=== PATIENT | male | born 1965 | race Two or more races ===

== ENCOUNTER 2023-10-07 15:44 | Inpatient (IN) | payer OTHER ==
[~2023-10-07] VITALS: Ht 175.3 cm; Wt 79.7 kg
[2023-10-07 15:56] VITALS: PULSE 79; RESP 17; O2SAT 98
[2023-10-07] MEDS ORDERED: NITROGLYCERIN 2% OINT 1GM PKG TD ONE (16:00)
[2023-10-07] MEDS ORDERED: ASPirin-EC 325mg tab PO ONE (16:00)
[2023-10-07] MEDS ORDERED: FUROSEMIDE 40 MG/4 ML VIAL IV ONE (16:00)
[2023-10-07] MEDS ORDERED: NITROGLYCERIN 50MG/250ML 250 ML IV ONE (16:00)
[2023-10-07 16:44] LABS: Basophils # (auto) 0 10 ^3/uL (0-0.2); Basophils % (auto) 0.4 % (0.0-2.0); Eosinophils # (auto) 0.1 10 ^3/uL (0-0.8); Eosinophils % (auto) 1.1 % (0.0-7.0); Hematocrit 38.5 % (41.0-53.0); Hemoglobin 12.6 g/dL (13.5-17.5); Lymphocytes # (auto) 1.2 10 ^3/uL (0.4-5.4); Lymphocytes % (auto) 12.8 % (10.0-50.0); Mean Corpuscular Hemoglobin 30.8 pg (28.0-32.0); Mean Corpuscular Hgb Conc. 32.8 g/dL (32.0-36.0); Mean Corpuscular Volume 93.9 fL (80.0-100.0); Monocytes # (auto) 0.7 10 ^3/uL (0-1.3); Monocytes % (auto) 7.8 % (0.0-12.0); Neutrophils # (auto) 7.3 10 ^3/uL (1.6-8.6); Neutrophils % (auto) 77.9 % (37.0-80.0); Red Cell Distribution Width 17.2 % (11.8-14.3); White Blood Cell 9.4 10^3/uL (4.4-10.8)
[2023-10-07 17:04] LABS: Chloride 92 mmol/L (98-107); Potassium 4.3 mmol/L (3.5-5.1); Sodium 133 mmol/L (136-145)
[2023-10-07 17:05] LABS: Anion Gap 7 (5-15); Calcium 8.6 mg/dL (8.7-10.4); Carbon Dioxide 34 mmol/L (20-30)
[2023-10-07 17:10] LABS: Blood Urea Nitrogen 31 mg/dL (9-23); Glucose 362 mg/dL (74-106); INR 1.13 (0.9-1.15); Prothrombin Time 11.8 sec (9.3-11.8)
[2023-10-07 19:15] VITALS: PULSE 76; RESP 15; O2SAT 97
[2023-10-07] MEDS ORDERED: ACETAMINOPHEN 500 MG TAB PO ONE (20:00)
[2023-10-07] MEDS ORDERED: MORPHINE SULFATE INJ 2 MG/ml SYRG IV PRN (21:00)
[2023-10-07] MEDS ORDERED: DEXTROSE (50%) 50ML SYRG IV PRN (21:00)
[2023-10-07] MEDS ORDERED: NITROGLYCERIN 0.4 MG SL TAB SL PRN (21:00)
[2023-10-07] MEDS ORDERED: SODIUM CHL 0.9% 1000 ML BAG XX ONE (21:00)
[2023-10-07 21:23] LABS: COVID19 ANTIGEN SOFIA FIA NEGATIVE (NEGATIVE); Rapid Influenza A Negative (Negative); Rapid Influenza B Negative (Negative)
[2023-10-07] MEDS ORDERED: SACUBITRIL-VALSARTAN 24mg/26mg TAB PO SCH (22:00)
[2023-10-07] MEDS: ACCU-CHEK COMFORT CURVE STRIP VI SCH (22:09)
[2023-10-07] MEDS: InsuLIN REG 1unit/0.01ml Soln (100units/ml) SC SCH (22:09)
[2023-10-07] MEDS ORDERED: TEMAZEPAM 15 MG CAP PO ONE (22:30)
[2023-10-08] VITALS (8 sets, daily range): BP systolic 106–210; BP diastolic 55–118; PULSE 69–87; RESP 16–20; TEMP 97.9; O2SAT 91–98
[2023-10-08] MEDS ORDERED: NITROGLYCERIN 50MG/250ML 250 ML IV ONE ×2 (01:47→06:29)
[2023-10-08] MEDS: FUROSEMIDE 40 MG TAB PO SCH ×2 (06:05→18:00)
[2023-10-08] MEDS ORDERED: NIFEdipine ER 30 MG TAB PO PRN ×2 (06:15→06:30)
[2023-10-08] MEDS: InsuLIN REG 1unit/0.01ml Soln (100units/ml) SC SCH ×4 (06:35→22:01)
[2023-10-08] MEDS: ACCU-CHEK COMFORT CURVE STRIP VI SCH ×4 (06:35→22:00)
[2023-10-08 06:46] LABS: % Iron Saturation 15.7 % (20-55)
[2023-10-08 06:48] LABS: Basophils # (auto) 0.1 10 ^3/uL (0-0.2); Basophils % (auto) 0.7 % (0.0-2.0); Eosinophils # (auto) 0.2 10 ^3/uL (0-0.8); Eosinophils % (auto) 1.8 % (0.0-7.0); Hematocrit 34.8 % (41.0-53.0); Hemoglobin 11.5 g/dL (13.5-17.5); Lymphocytes # (auto) 1.5 10 ^3/uL (0.4-5.4); Lymphocytes % (auto) 15.6 % (10.0-50.0); Mean Corpuscular Hemoglobin 31.2 pg (28.0-32.0); Mean Corpuscular Hgb Conc. 33.1 g/dL (32.0-36.0); Mean Corpuscular Volume 94.2 fL (80.0-100.0); Monocytes # (auto) 0.8 10 ^3/uL (0-1.3); Monocytes % (auto) 8.4 % (0.0-12.0); Neutrophils % (auto) 73.5 % (37.0-80.0); Red Blood Cells 3.69 10^6/uL (4.5-5.90); Red Cell Distribution Width 16.9 % (11.8-14.3); White Blood Cell 9.5 10^3/uL (4.4-10.8)
[2023-10-08 06:49] LABS: Alanine Aminotransferase 16 U/L (7-40); Albumin 3.7 g/dL (3.2-4.8); Alkaline Phosphatase 169 U/L (46-116); Anion Gap 7 (5-15); Aspartate Aminotransferase 17 U/L (13-40); BUN/Creatinine Ratio 5.1 (10.0-20.0); Bilirubin, Total 0.9 mg/dL (0.2-1.0); Blood Urea Nitrogen 34 mg/dL (9-23); Carbon Dioxide 34 mmol/L (20-30); Chloride 93 mmol/L (98-107); Potassium 3.4 mmol/L (3.5-5.1); Sodium 134 mmol/L (136-145); Total Protein 7.3 g/dL (5.7-8.2)
[2023-10-08 06:51] LABS: Glucose 132 mg/dL (74-106)
[2023-10-08] MEDS: NITROGLYCERIN 50MG/250ML 250 ML IV SCH (06:53)
[2023-10-08] MEDS ORDERED: LABETALOL HCL 5 MG/ML 4ML SYRINGE IV ONE (08:30)
[2023-10-08] MEDS ORDERED: LISINOPRIL 10 MG TAB PO SCH (10:00)
[2023-10-08] MEDS: METOPROLOL TARTRATE 50 MG TAB PO SCH (10:27)
[2023-10-08] MEDS ORDERED: guaiFENesin-DM 100/10mg/5ml SYR PO PRN (10:30)
[2023-10-08] MEDS ORDERED: cefTRIAXone 1GM/50ML D5W 50 ML IV ONE (10:30)
[2023-10-08] MEDS ORDERED: methylPREDNISolone SOD SUCC 40 MG/ML VL IV ONE (10:30)
[2023-10-08] MEDS ORDERED: guaiFENesin-DM 100/10mg/5ml SYR PO ONE (10:30)
[2023-10-08] MEDS ORDERED: AZITHROMYCIN 500MG/ 250ML 250 ML IV ONE (10:30)
[2023-10-08] MEDS ORDERED: ASPirin 81 mg TAB PO ONE (10:45)
[2023-10-08] MEDS ORDERED: ATORVASTATIN 20 MG TAB PO ONE (10:45)
[2023-10-08] MEDS: ALBUTEROL SULF 2.5 MG/0.5ML(0.5%) NEB SOLN NEB SCH ×2 (12:56→18:29)
[2023-10-08] MEDS: IPRATROPIUM BROM 0.5 MG/2.5ML INH SOL NEB SCH ×2 (12:57→18:29)
[2023-10-08] MEDS ORDERED: NIFEdipine ER 30 MG TAB PO ONE ×2 (13:15→14:15)
[2023-10-08] MEDS ORDERED: LEVOTHYROXINE SODIUM 100 MCG TAB PO ONE (18:15)
[2023-10-08] MEDS ORDERED: methylPREDNISolone SOD SUCC 40 MG/ML VL IV SCH (22:00)
[2023-10-08] MEDS: ATORVASTATIN 20 MG TAB PO SCH (22:00)
[2023-10-08] MEDS: SACUBITRIL-VALSARTAN 24mg/26mg TAB PO SCH (22:00)
[2023-10-09] VITALS (14 sets, daily range): BP systolic 112–135; BP diastolic 48–74; PULSE 60–97; RESP 14–20; TEMP 97.4–98.2; O2SAT 92–100
[2023-10-09] MEDS: NITROGLYCERIN 50MG/250ML 250 ML IV SCH (05:58)
[2023-10-09] MEDS: FUROSEMIDE 40 MG TAB PO SCH ×2 (06:00→17:16)
[2023-10-09] MEDS: ALBUTEROL SULF 2.5 MG/0.5ML(0.5%) NEB SOLN NEB SCH ×4 (06:19→18:17)
[2023-10-09] MEDS: IPRATROPIUM BROM 0.5 MG/2.5ML INH SOL NEB SCH ×3 (06:19→18:17)
[2023-10-09 06:27] LABS: Basophils # (auto) 0.1 10 ^3/uL (0-0.2); Basophils % (auto) 0.5 % (0.0-2.0); Eosinophils # (auto) 0.1 10 ^3/uL (0-0.8); Eosinophils % (auto) 0.7 % (0.0-7.0); Hematocrit 35.8 % (41.0-53.0); Hemoglobin 11.8 g/dL (13.5-17.5); Lymphocytes # (auto) 1.9 10 ^3/uL (0.4-5.4); Lymphocytes % (auto) 12.5 % (10.0-50.0); Mean Corpuscular Hemoglobin 30.9 pg (28.0-32.0); Mean Corpuscular Volume 93.8 fL (80.0-100.0); Monocytes # (auto) 1.1 10 ^3/uL (0-1.3); Monocytes % (auto) 7.3 % (0.0-12.0); Neutrophils # (auto) 11.8 10 ^3/uL (1.6-8.6); Nucleated Red Blood Cells % 0.1 %; Red Blood Cells 3.82 10^6/uL (4.5-5.90)
[2023-10-09] MEDS: LEVOTHYROXINE SODIUM 100 MCG TAB PO SCH (06:31)
[2023-10-09] MEDS: InsuLIN REG 1unit/0.01ml Soln (100units/ml) SC SCH ×6 (06:31→22:00)
[2023-10-09] MEDS: ACCU-CHEK COMFORT CURVE STRIP VI SCH ×7 (06:31→22:00)
[2023-10-09 06:41] LABS: Chloride 92 mmol/L (98-107); Potassium 3.4 mmol/L (3.5-5.1); Sodium 133 mmol/L (136-145)
[2023-10-09 06:42] LABS: Anion Gap 11 (5-15); Carbon Dioxide 30 mmol/L (20-30)
[2023-10-09 06:48] LABS: BUN/Creatinine Ratio 5.1 (10.0-20.0); Blood Urea Nitrogen 40 mg/dL (9-23); Glucose 61 mg/dL (74-106)
[2023-10-09] MEDS ORDERED: SODIUM CHL 0.9% 1000 ML BAG XX ONE (07:00)
[2023-10-09 08:55] LABS: Triglycerides 78 mg/dL (< 150)
[2023-10-09 08:57] LABS: Cholesterol 83 mg/dL (< 200); HDL Cholesterol 26 mg/dL (40-59)
[2023-10-09 09:11] LABS: LDL Cholesterol 34 mg/dL (< 100)
[2023-10-09] MEDS: cefTRIAXone 1GM/50ML D5W 50 ML IV SCH (09:25)
[2023-10-09] MEDS: ASPirin 81 mg TAB PO SCH (09:25)
[2023-10-09] MEDS ORDERED: AZITHROMYCIN 500MG/ 250ML 250 ML IV SCH (10:00)
[2023-10-09] MEDS: SACUBITRIL-VALSARTAN 24mg/26mg TAB PO SCH ×2 (10:00→21:26)
[2023-10-09] MEDS ORDERED: NIFEdipine ER 30 MG TAB PO SCH (10:00)
[2023-10-09] MEDS: NIFEdipine ER 30 MG TAB PO SCH (10:00)
[2023-10-09] MEDS: METOPROLOL TARTRATE 50 MG TAB PO SCH (10:00)
[2023-10-09] MEDS ORDERED: DEXTROSE (50%) 50ML SYRG IV PRN (11:30)
[2023-10-09] MEDS ORDERED: ALBUMIN 25% 100 ML IV ONE ×2 (19:00)
[2023-10-09] MEDS ORDERED: HYDR1CAP27 PO (19:51)
[2023-10-09] MEDS ORDERED: BENZ100C97 PO (19:51)
[2023-10-09] MEDS: ATORVASTATIN 20 MG TAB PO SCH (21:26)
[2023-10-10] VITALS (15 sets, daily range): BP systolic 143–169; BP diastolic 48–69; PULSE 64–71; RESP 14–20; TEMP 98–98.2; O2SAT 94–100
[2023-10-10] MEDS: ALBUTEROL SULF 2.5 MG/0.5ML(0.5%) NEB SOLN NEB SCH ×4 (01:13→18:04)
[2023-10-10 05:54] LABS: Chloride 95 mmol/L (98-107); Potassium 4.1 mmol/L (3.5-5.1); Sodium 135 mmol/L (136-145)
[2023-10-10 05:55] LABS: Anion Gap 9 (5-15); Carbon Dioxide 31 mmol/L (20-30)
[2023-10-10 05:56] LABS: Calcium 8.5 mg/dL (8.5-10.1)
[2023-10-10 06:01] LABS: BUN/Creatinine Ratio 5.3 (10.0-20.0); Basophils # (auto) 0.1 10 ^3/uL (0-0.2); Basophils % (auto) 0.5 % (0.0-2.0); Blood Urea Nitrogen 34 mg/dL (9-23); Eosinophils # (auto) 0.2 10 ^3/uL (0-0.8); Eosinophils % (auto) 2.4 % (0.0-7.0); Hematocrit 35.6 % (41.0-53.0); Hemoglobin 11.7 g/dL (13.5-17.5); Lymphocytes % (auto) 10.6 % (10.0-50.0); Mean Corpuscular Hemoglobin 30.9 pg (28.0-32.0); Mean Corpuscular Hgb Conc. 32.9 g/dL (32.0-36.0); Mean Corpuscular Volume 93.9 fL (80.0-100.0); Monocytes # (auto) 0.6 10 ^3/uL (0-1.3); Neutrophils # (auto) 7.7 10 ^3/uL (1.6-8.6); Neutrophils % (auto) 80.5 % (37.0-80.0); Red Blood Cells 3.79 10^6/uL (4.5-5.90); Red Cell Distribution Width 16.8 % (11.8-14.3); White Blood Cell 9.5 10^3/uL (4.4-10.8)
[2023-10-10 06:03] LABS: Glucose 184 mg/dL (74-106)
[2023-10-10] MEDS: ACCU-CHEK COMFORT CURVE STRIP VI SCH ×5 (06:23→16:44)
[2023-10-10] MEDS: FUROSEMIDE 40 MG TAB PO SCH ×2 (06:23→17:15)
[2023-10-10] MEDS: LEVOTHYROXINE SODIUM 100 MCG TAB PO SCH (06:23)
[2023-10-10] MEDS: InsuLIN REG 1unit/0.01ml Soln (100units/ml) SC SCH ×3 (06:24→16:44)
[2023-10-10] MEDS ORDERED: EMPAGLIFLOZIN 10 MG TAB PO SCH (07:00)
[2023-10-10] MEDS: IPRATROPIUM BROM 0.5 MG/2.5ML INH SOL NEB SCH ×3 (07:42→18:04)
[2023-10-10] MEDS: ASPirin 81 mg TAB PO SCH (09:20)
[2023-10-10] MEDS: cefTRIAXone 1GM/50ML D5W 50 ML IV SCH (09:20)
[2023-10-10] MEDS: NIFEdipine ER 30 MG TAB PO SCH (09:21)
[2023-10-10] MEDS: METOPROLOL TARTRATE 50 MG TAB PO SCH (09:21)
[2023-10-10] MEDS ORDERED: AZITHROMYCIN 250 MG TAB PO SCH (10:00)
[2023-10-10] MEDS ORDERED: ENOXAPARIN SOD 30 MG/0.3 ML SYRINGE SC SCH (10:00)
[2023-10-10] MEDS ORDERED: SACUBITRIL-VALSARTAN 24mg/26mg TAB PO SCH (10:00)
[2023-10-10] MEDS ORDERED: hydrALAZINE HCL 20 MG/ML VL IV PRN (14:30)
== END 2023-10-10 21:40 | disposition short-term general hospital (02) | DRG 177 ==
LOC: EDBD 15:44 → ER 15:44 → TELE 20:57 → TELE-WESTW 10-08 20:57 → WEST WING 10-10 18:49
PROVIDERS: ADMIT Internal Medicine; ATTEND Internal Medicine
PROC: 5A1D70Z Performance of Urinary Filtration, Intermittent, Less than 6 Hours Per Day (ICD-10-PCS; principal; 2023-10-09)
DX: J15.69 Pneumonia due to other Gram-negative bacteria (principal); I50.23 Acute on chronic systolic (congestive) heart failure; J96.01 Acute respiratory failure with hypoxia; N18.6 End stage renal disease; I13.2 Hypertensive heart and chronic kidney disease with heart failure and with stage 5 chronic kidney disease, or end stage renal disease; I16.1 Hypertensive emergency; I42.9 Cardiomyopathy, unspecified; J15.9 Unspecified bacterial pneumonia; E66.01 Morbid (severe) obesity due to excess calories; E11.22 Type 2 diabetes mellitus with diabetic chronic kidney disease; E11.65 Type 2 diabetes mellitus with hyperglycemia; E78.5 Hyperlipidemia, unspecified; E03.9 Hypothyroidism, unspecified; Z20.822 Contact with and (suspected) exposure to COVID-19; I25.10 Atherosclerotic heart disease of native coronary artery without angina pectoris; I25.2 Old myocardial infarction; Z68.25 Body mass index [BMI] 25.0-25.9, adult; Z83.3 Family history of diabetes mellitus; Z91.148 Patient's other noncompliance with medication regimen for other reason; Z95.810 Presence of automatic (implantable) cardiac defibrillator; Z99.2 Dependence on renal dialysis; Z91.199 Patient's noncompliance with other medical treatment and regimen due to unspecified reason
CPT/HCPCS: 36415; 71045; 80048; 80053; 80061; 82728; 82962; 83036; 83540; 83550; 83605; 83880; 84439; 84443; 84484; 85025; 85610; 86376; 87081; 87340; 87426; 87804; 90935; 93005; 93306; 94640; 96365; 96366; 96367; 96368; 96372; 96375; 99291; G0378; J1815; J3490